=== PATIENT | female | born 1995 | race American Indian/Alaskan Native ===

== ENCOUNTER 2022-04-03 01:27 | Outpatient (CLI) | payer BC, OTHER ==
[2022-04-03] MEDS ORDERED: LACTATED RINGERS 1,000 ML ONE (03:01)
[2022-04-03] MEDS ORDERED: LACTATED RINGERS 1,000 ML IV ONE (03:06)
--- NOTE | 2022-04-03 03:26 | Ultrasound Report ---
ULTRASOUND BIOPHYSICAL PROFILE INDICATION / CLINICAL INFORMATION: DOUG. well-being COMPARISON: None available. FINDINGS: BREATHING MOVEMENT = 2 GROSS BODY MOVEMENT = 2 TONE = 2 QUALITATIVE AMNIOTIC FLUID VOLUME = 2 TOTAL BIOPHYSICAL SCORE = 03/13 AMNIOTIC FLUID INDEX (cm) = 12.2 PRESENTATION: Cephalic. HEART RATE (beats per minute): 140 IMPRESSION: 1. biophysical profile = 03/13 Signer Name: Chicho Carmona MD Signed: 04/03/2022 3:22 AM Workstation Name: [employer]
[2022-04-03 03:54] LABS: Bacteria,Urine 2+ /HPF (Negative); Mucus,Urine 1+ /HPF
[2022-04-03 03:56] LABS: Color,Urine Yellow (Yellow)
[2022-04-03] MEDS ORDERED: NITROFURANTOIN MONOHYD/M-CRYST 100 MG CAP PO ONE (05:37)
[2022-04-03 05:51] VITALS: BP 116/74
== END 2022-04-03 05:54 | disposition home or self-care (01) ==
LOC: TRG 01:27 → APU 01:32 → TRG 05:54
PROVIDERS: ATTEND Obstetrics & Gynecology
DX: O62.9 Abnormality of forces of labor, unspecified (principal); O26.893 Other specified pregnancy related conditions, third trimester; R06.02 Shortness of breath; Z3A.31 31 weeks gestation of pregnancy
CPT/HCPCS: 36415; 59025; 76815; 76819; 81001; 82731; 87086; 96360; J7120